=== PATIENT | female | born 1995 | race African-American/Black ===

== ENCOUNTER 2020-02-19 20:49 | Emergency (ER) | payer MEDICAID ==
[~2020-02-19] VITALS: Ht 172.7 cm; Wt 127.0 kg
[2020-02-19] MEDS ORDERED: FAMOTIDINE 20MG TABLET PO ONE (22:30)
[2020-02-19] MEDS ORDERED: DEXAMETHASONE 4MG TABLET PO ONE (22:30)
[2020-02-19] MEDS ORDERED: DIPHENHYDRAMINE 50MG CAPSULE PO ONE (22:30)
[2020-02-19] MEDS ORDERED: EPINEPHRINE 1:1000 1 MG/ML AMP IM ONE (23:45)
[2020-02-20 01:58] VITALS: BP 130/71
== END 2020-02-20 01:59 | disposition home or self-care (01) ==
LOC: ER 20:49
DX: L50.9 Urticaria, unspecified (principal); Z20.828 Contact with and (suspected) exposure to other viral communicable diseases
CPT/HCPCS: 96372; 99284; C9803; J3490; J8540; Q0163; U0003

== ENCOUNTER 2020-04-29 13:54 | Emergency (ER) | payer MEDICAID, OTHER ==
[~2020-04-29] VITALS: Ht 175.3 cm; Wt 127.0 kg
[2020-04-29 14:01] VITALS: BP 112/65
[2020-04-29] MEDS ORDERED: PSYL0.4C2 MT (14:45)
[2020-04-29] MEDS ORDERED: HYDR26CR2 TP (14:45)
== END 2020-04-29 15:21 | disposition home or self-care (01) ==
LOC: ER 13:54
DX: K64.4 Residual hemorrhoidal skin tags (principal)
CPT/HCPCS: 81025; 93005; 99283